=== PATIENT | female | born 1940 | race Caucasian/White ===

== ENCOUNTER 2021-07-13 13:50 | Outpatient (CLI) | payer MEDICARE, BC ==
[~2021-07-13 13:50] MED LIST: ATOR40TA72 PO; CLOP75TA34 PO; FAMO20TA8 PO; GLIP10TA11 PO; LACT1CAP65 PO; MULT-1085 PO; ONQPUMP ADDCANAL; POTA-207 PO; TRAM50TA2 PO; TRIA1CAP6 PO
[2021-07-13] MEDS ORDERED: PREVAGEN (14:53)
[2021-07-13] MEDS ORDERED: [UNRECOGNIZED DRUG - CODE] PO (14:53)
[2021-07-13] MEDS ORDERED: EMPAGLIFLOZIN (14:53)
[2021-07-13] MEDS ORDERED: FAMO-128 PO (14:53)
[2021-07-13] MEDS ORDERED: CALC-861 PO (14:53)
[2021-07-13] MEDS ORDERED: MULT-1085 PO (14:53)
[2021-07-13] MEDS ORDERED: OMEG-79 PO (14:53)
[2021-07-13 15:11] LABS: BASOPHILS % (AUTO) 0.7 % (0-1); EOSINOPHILS # (AUTO) 0.1 X10'3 (0-0.9); EOSINOPHILS % (AUTO) 1.4 % (0-6); LYMPHOCYTES # (AUTO) 1.3 X10'3 (1.1-4.8); LYMPHOCYTES % (AUTO) 23.4 % (21-51); MEAN CORPUSCULAR HEMOGLOBIN 33.1 PG (27.0-31.0); MEAN CORPUSCULAR HGB CONC 33.6 g/dL (33.0-36.5); MEAN CORPUSCULAR VOLUME 98.5 FL (78-98); MEAN PLATELET VOLUME 8.8 FL (7.4-10.4); MONOCYTES # (AUTO) 0.4 X10'3 (0-0.9); MONOCYTES % (AUTO) 7.4 % (2-12); NEUTROPHILS # (AUTO) 3.8 X10'3 (1.8-7.7); NEUTROPHILS % (AUTO) 67.1 % (42-75); PRE OP HEMATOCRIT 38.8 % (35.0-45.0); PRE OP PLATELET COUNT 201 X10'3 (140-440); RED BLOOD COUNT 3.94 X10'6 (4.20-5.60); RED CELL DISTRIBUTION WIDTH 13.3 % (11.5-14.5)
[2021-07-13 15:32] LABS: ALBUMIN 3.1 G/DL (3.4-5.0); ALBUMIN/GLOBULIN RATIO 0.8 (1.1-1.5); ALKALINE PHOSPHATASE 79 IU/L (46-116); BLOOD UREA NITROGEN 25 MG/DL (7-18); BUN/CREATININE RATIO 22.1 (6.6-38.0); CALCIUM 8.4 MG/DL (8.5-10.1); CHLORIDE 107 MMOL/L (99-107); CREATININE 1.13 MG/DL (0.40-0.90); PRE OP ANION GAP 6 (8-16); PRE OP AST 80 U/L (10-37); PRE OP BILIRUB, TOTAL 0.5 MG/DL (0.0-1.0); PRE OP GLUCOSE 158 MG/DL (70-104); PRE OP POTASSIUM 4.1 MMOL/L (3.4-5.1); PRE OP SODIUM 143 MMOL/L (135-145); TOTAL CARBON DIOXIDE 30.3 MMOL/L (24-32); TOTAL PROTEIN 7.2 G/DL (6.4-8.2); eGFR 46 ML/MIN
[2021-07-13 15:35] LABS: PRE OP ALT 102 U/L (30-65)
[2021-07-13 16:16] LABS: HEMOGLOBIN A1C > 14.0 % (4.5-6.2)
== END 2021-07-13 23:59 | disposition home or self-care (01) ==
LOC: PRE-OP 13:50 → EDSTATUS 07-20 09:00
PROVIDERS: ATTEND Orthopaedic Surgery
DX: Z01.812 Encounter for preprocedural laboratory examination (principal); M25.561 Pain in right knee; M25.661 Stiffness of right knee, not elsewhere classified; Z96.651 Presence of right artificial knee joint; Z20.822 Contact with and (suspected) exposure to COVID-19
CPT/HCPCS: 36415; 80053; 83036; 85025; 87081; 93005; U0003; U0005